=== PATIENT | male | born 1945 | race Caucasian/White ===

== ENCOUNTER 2017-09-18 14:53 | Inpatient (IN) | payer MEDICARE, MEDICAID, OTHER ==
[~2017-09-18] VITALS: Ht 162.6 cm; Wt 125.4 kg
[~2017-09-18 14:53] MED LIST: ASPI-611 PO; AZEL30SP NS; CLOP75TA35 PO; DILT240C9 PO; DOXA1TAB2 PO; FLUT1BLS3 IH; FURO40TA4 PO; GABA-338 PO; GUAI600T45 PO; LANTUS SQ; LISI-600 PO; MULT-342 PO; PRED20TA PO; ROSU20TA PO
[2017-09-18] MEDS ORDERED: ipratropium/albuterol 3ml nebule NEB ONE (15:55)
[2017-09-18] MEDS ORDERED: methylPREDNISolone sod succ 125mg/2ml vial IV ONE ×2 (15:55→23:30)
[2017-09-18 16:30] LABS: ABG BASE EXCESS -4.3 mmol/L (-2.0-3.0); ABG HCO3 22.8 mmol/L (22.0-26.0); ABG OXYGEN SATURATION 88.4 % (95-98); ABG PCO2 (T) 50.5 mmHg (35.0-48.0); ABG PH (T) 7.273 (7.350-7.450); ABG PO2 (T) 54.7 mmHg (83-108); ALLEN'S TEST Positive; FCOHb 0.7 % (0.5-1.5); FLOW 2 L/min; FMetHb 0.2 % (0.3-1.12); FO2Hb 87.6 % (94-100); TOTAL HEMOGLOBIN 12.3 G/dl (14.0-18.0)
[2017-09-18 16:30] LABS: BASOPHILS % (AUTO) 0.1 % (0-1); EOSINOPHILS # (AUTO) 0.1 X10'3 (0-0.9); EOSINOPHILS % (AUTO) 0.9 % (0-6); HEMATOCRIT 35.2 % (42.0-52.0); HEMOGLOBIN 11.7 g/dl (14.0-17.9); LYMPHOCYTES # (AUTO) 1.4 X10'3 (1.1-4.8); LYMPHOCYTES % (AUTO) 12.7 % (21-51); MEAN CORPUSCULAR HEMOGLOBIN 28.3 PG (27.0-31.0); MEAN CORPUSCULAR HGB CONC 33.2 % (33.0-36.5); MEAN CORPUSCULAR VOLUME 85.2 FL (78-98); MEAN PLATELET VOLUME 8.8 FL (7.4-10.4); MONOCYTES # (AUTO) 0.6 X10'3 (0-0.9); NEUTROPHILS # (AUTO) 8.5 X10'3 (1.8-7.7); NEUTROPHILS % (AUTO) 80.3 % (42-75); PLATELET COUNT 234 X10'3 (140-440); RED BLOOD COUNT 4.13 X10'6 (4.70-6.10); RED CELL DISTRIBUTION WIDTH 16.1 % (11.5-14.5); WHITE BLOOD COUNT 10.6 X10'3 (4.5-11.0)
[2017-09-18 16:40] LABS: ALANINE AMINOTRANSFERASE 33 U/L (12-78); ALBUMIN 3.2 G/DL (3.4-5.0); ALBUMIN/GLOBULIN RATIO 0.7 (1.1-1.5); ALKALINE PHOSPHATASE 135 IU/L (46-116); ANION GAP 14 (8-16); ASPARTATE AMINO TRANSFERASE 46 U/L (10-37); BILIRUBIN,TOTAL 0.2 MG/DL (0.1-1.0); BLOOD UREA NITROGEN 48 MG/DL (7-18); BUN/CREATININE RATIO 11.1 (5.4-32.0); CHLORIDE 98 MMOL/L (99-107); CREATININE 4.33 MG/DL (0.60-1.10); GLUCOSE 290 MG/DL (70-104); POTASSIUM 5.3 MMOL/L (3.5-5.1); SODIUM 136 MMOL/L (135-145); TOTAL CARBON DIOXIDE 24.2 MMOL/L (24-32); TOTAL PROTEIN 7.7 G/DL (6.4-8.2); eGFR 14 ML/MIN
[2017-09-18] MEDS ORDERED: levoFLOXACIN-Levaquin 500mg/D5 100 ML IV ONE ×3 (18:03→19:20)
[2017-09-18 19:06] LABS: ABG BASE EXCESS -6.4 mmol/L (-2.0-3.0); ABG HCO3 21.8 mmol/L (22.0-26.0); ABG OXYGEN SATURATION 88.2 % (95-98); ABG PCO2 (T) 55.4 mmHg (35.0-48.0); ABG PH (T) 7.213 (7.350-7.450); ABG PO2 (T) 60.7 mmHg (83-108); ALLEN'S TEST Positive; FCOHb 0.8 % (0.5-1.5); FLOW 3 L/min; FMetHb 0.2 % (0.3-1.12); FO2Hb 87.3 % (94-100)
[2017-09-18] MEDS ORDERED: LORazepam 2 mg/ml vial IV ONE (19:10)
[2017-09-18 22:26] LABS: ABG BASE EXCESS -7.1 mmol/L (-2.0-3.0); ABG HCO3 21.4 mmol/L (22.0-26.0); ABG OXYGEN SATURATION 93.7 % (95-98); ABG PCO2 (T) 56.2 mmHg (35.0-48.0); ABG PH (T) 7.198 (7.350-7.450); ABG PO2 (T) 78.6 mmHg (83-108); ALLEN'S TEST Positive; FCOHb 0.7 % (0.5-1.5); FMetHb 0.2 % (0.3-1.12); FO2Hb 92.9 % (94-100); RESPIRATORY RATE 16 b/min; TOTAL HEMOGLOBIN 12.4 G/dl (14.0-18.0)
[2017-09-18] MEDS ORDERED: magnesium Cl slow-release 64mg tablet PO PRN (23:20)
[2017-09-18] MEDS ORDERED: K, MAG and/or Phos replacement - Verify level? MC PRN (23:20)
[2017-09-18] MEDS ORDERED: magnesium/D5W IVPB 50 ML IV PRN (23:20)
[2017-09-18] MEDS ORDERED: magnesium hydroxide 30ml (MOM) UD suspension PO PRN (23:20)
[2017-09-18] MEDS ORDERED: acetaminophen 325mg tablet PO PRN ×2 (23:20)
[2017-09-18] MEDS ORDERED: potassium Cl 20 mEq SR tablet PO PRN ×2 (23:20)
[2017-09-18] MEDS ORDERED: ondansetron/PF 4mg/2ml inj IV PRN (23:20)
[2017-09-18] MEDS ORDERED: magnesium 4gm in 100ml NS 100 ML IV PRN (23:20)
[2017-09-18] MEDS ORDERED: morphine 4 MG/ML inj SYRINge IV PRN ×2 (23:20)
[2017-09-18] MEDS ORDERED: potassium Cl 40MEQ/250ML bag 250 ML IV PRN ×2 (23:20)
[2017-09-18] MEDS ORDERED: MESSAGE TO PHARMACY PO ONE (23:50)
[2017-09-18] MEDS ORDERED: glucagon, human recombinant 1mg kit SUBCUT PRN (23:50)
[2017-09-18] MEDS ORDERED: dextrose 50%-water 50ml dispensing syringe IV PRN ×2 (23:50)
[2017-09-18] MEDS ORDERED: dextrose ORAL solution 15 GM/59 ML bottle PO PRN ×2 (23:50)
[2017-09-19] VITALS (20 sets, daily range): BP systolic 126–177; BP diastolic 59–98
[2017-09-19 01:01] LABS: PROTHROMBIN TIME 10.3 SECONDS (9.0-12.0)
[2017-09-19] MEDS ORDERED: insulin Lispro (HumaLOG) vial - multi-dose SQ ONE (01:15)
[2017-09-19] MEDS: insulin Lispro (HumaLOG) vial - multi-dose SQ SCH ×4 (01:22→20:49)
[2017-09-19 01:41] LABS: ABG BASE EXCESS -5.8 mmol/L (-2.0-3.0); ABG HCO3 22.4 mmol/L (22.0-26.0); ABG OXYGEN SATURATION 91.8 % (95-98); ABG PCO2 (T) 54.9 mmHg (35.0-48.0); ABG PH (T) 7.227 (7.350-7.450); ABG PO2 (T) 65.7 mmHg (83-108); ALLEN'S TEST Positive; FCOHb 1.1 % (0.5-1.5); FMetHb 0.2 % (0.3-1.12); FO2Hb 90.6 % (94-100); PATIENT TEMPERATURE 36.5; RESPIRATORY RATE 24 b/min; TOTAL HEMOGLOBIN 12.6 G/dl (14.0-18.0)
[2017-09-19] MEDS ORDERED: albuterol 2.5 MG/3 ML nebule NEB PRN (03:10)
[2017-09-19 03:33] LABS: CLARITY,URINE CLEAR (Clear); COLOR,URINE YELLOW (Yellow); GLUCOSE, URINE >=1000 mg/dl (Neg); KETONES,URINE NEGATIVE (Neg); LEUKOCYTE ESTERASE ,URINE NEGATIVE (Neg); NITRITES, URINE NEGATIVE (Neg); OCCULT BLOOD,URINE LARGE (Neg); PROTEIN,URINE 30 mg/dl (Neg); UROBILINOGEN,URINE 0.2 E.U/dL (0.2-1.0)
[2017-09-19 03:34] LABS: UA COLLECTION TYPE NON-SPECIFIED
[2017-09-19 03:47] LABS: COARSE GRANULAR CAST 0-3 /LPF (NEGATIVE); FINE GRANULAR CAST 0-3 /LPF (NEGATIVE)
[2017-09-19 04:02] LABS: BACTERIA,URINE FEW /HPF (Neg); RBC,URINE 0-2 /HPF (0-2); SQUAMOUS EPITHELIAL CELL,UR FEW /LPF (FEW); WBC,URINE 0-4 /HPF (0-4)
[2017-09-19 05:34] LABS: BASOPHILS % (AUTO) 0 % (0-1); EOSINOPHILS # (AUTO) 0.1 X10'3 (0-0.9); EOSINOPHILS % (AUTO) 0.7 % (0-6); HEMATOCRIT 34.3 % (42.0-52.0); HEMOGLOBIN 11.4 g/dl (14.0-17.9); LYMPHOCYTES # (AUTO) 0.5 X10'3 (1.1-4.8); MEAN CORPUSCULAR HEMOGLOBIN 27.8 PG (27.0-31.0); MEAN CORPUSCULAR HGB CONC 33.1 % (33.0-36.5); MONOCYTES # (AUTO) 0.1 X10'3 (0-0.9); MONOCYTES % (AUTO) 0.5 % (2-12); NEUTROPHILS # (AUTO) 10.3 X10'3 (1.8-7.7); NEUTROPHILS % (AUTO) 93.8 % (42-75); PLATELET COUNT 217 X10'3 (140-440); RED BLOOD COUNT 4.09 X10'6 (4.70-6.10); RED CELL DISTRIBUTION WIDTH 16.2 % (11.5-14.5); WHITE BLOOD COUNT 10.9 X10'3 (4.5-11.0)
[2017-09-19] MEDS ORDERED: LORazepam 2 mg/ml vial ONE (05:47)
[2017-09-19 05:56] LABS: ALANINE AMINOTRANSFERASE 36 U/L (12-78); ALBUMIN 2.9 G/DL (3.4-5.0); ALBUMIN/GLOBULIN RATIO 0.7 (1.1-1.5); ALKALINE PHOSPHATASE 132 IU/L (46-116); ANION GAP 10 (8-16); ASPARTATE AMINO TRANSFERASE 53 U/L (10-37); BILIRUBIN,TOTAL 0.2 MG/DL (0.1-1.0); BLOOD UREA NITROGEN 54 MG/DL (7-18); BUN/CREATININE RATIO 15.2 (5.4-32.0); CALCIUM 9.3 MG/DL (8.5-10.1); CHLORIDE 100 MMOL/L (99-107); CREATININE 3.55 MG/DL (0.60-1.10); GLUCOSE 347 MG/DL (70-104); POTASSIUM 5.1 MMOL/L (3.5-5.1); SODIUM 135 MMOL/L (135-145); TOTAL CARBON DIOXIDE 24.9 MMOL/L (24-32); TOTAL PROTEIN 7.3 G/DL (6.4-8.2); eGFR 17 ML/MIN
[2017-09-19 06:04] LABS: MAGNESIUM 2.7 MG/DL (1.5-2.4); PHOSPHORUS 6.1 MG/DL (2.3-4.5)
[2017-09-19 06:33] LABS: HEMOGLOBIN A1C > 14.0 % (4.5-6.2)
[2017-09-19] MEDS: levoFLOXACIN-Levaquin 250mg/D5 50 ML IV SCH (08:10)
[2017-09-19] MEDS: insulin glargine (Lantus) pen - multi-dose SQ SCH ×2 (09:09→19:33)
[2017-09-19] MEDS: albuterol 2.5 MG/3 ML nebule NEB SCH ×3 (11:00→19:31)
[2017-09-19 11:05] LABS: ABG BASE EXCESS -4.7 mmol/L (-2.0-3.0); ABG HCO3 21.2 mmol/L (22.0-26.0); ABG OXYGEN SATURATION 89.4 % (95-98); ABG PO2 (T) 59.2 mmHg (83-108); ALLEN'S TEST Positive; FCOHb 0.2 % (0.5-1.5); FLOW 2 L/min; FMetHb 0.3 % (0.3-1.12); TOTAL HEMOGLOBIN 11.9 G/dl (14.0-18.0)
[2017-09-19] MEDS ORDERED: gabapentin 300mg capsule PO SCH (13:00)
[2017-09-19] MEDS ORDERED: INSU100I25 SQ (14:06)
[2017-09-19] MEDS ORDERED: METO50TA16 PO (14:06)
[2017-09-19] MEDS ORDERED: AMLO10TA PO (14:06)
[2017-09-19] MEDS ORDERED: ROSU40TA21 PO (14:06)
[2017-09-19] MEDS: predniSONE 20 mg tablet PO SCH (15:45)
[2017-09-19] MEDS: budesonide 0.5mg/2ml UD nebule IH SCH (19:31)
[2017-09-19] MEDS: lisinopril 20mg tablet PO SCH (19:33)
[2017-09-19] MEDS: guaiFENesin ER 600mg tablet PO SCH (19:34)
[2017-09-19] MEDS: lactobacillus rhamnosus 10,000 MMU CELLS/CAPSULE PO SCH (19:34)
[2017-09-19] MEDS: azelastine Nasal Spray bottle NS SCH (19:34)
[2017-09-19] MEDS: diltiazem CD 120mg capsule (once-daily) PO SCH (20:44)
[2017-09-19] MEDS ORDERED: insulin glargine (Lantus) pen - multi-dose SQ SCH (21:00)
[2017-09-19 22:13] LABS: GLUCOSE, URINE >=1000 mg/dl (Neg); KETONES,URINE NEGATIVE (Neg); LEUKOCYTE ESTERASE ,URINE NEGATIVE (Neg); NITRITES, URINE NEGATIVE (Neg); OCCULT BLOOD,URINE LARGE (Neg); PH,URINE 5.5 (4.8-8.0); PROTEIN,URINE 100 mg/dl (Neg); UROBILINOGEN,URINE 0.2 E.U/dL (0.2-1.0)
[2017-09-19 22:19] LABS: COLOR,URINE AMBER (Yellow); UA COLLECTION TYPE FOLEY CATH
[2017-09-19 22:20] LABS: CLARITY,URINE Slightly Cloudy (Clear)
[2017-09-19 22:21] LABS: TOTAL PROTEIN,URINE RANDOM 108.8 MG/DL
[2017-09-19 22:22] LABS: MUCUS STRANDS NONE SEEN /LPF (Neg); RBC,URINE 50-100 /HPF (0-2); SQUAMOUS EPITHELIAL CELL,UR FEW /LPF (FEW); WBC,URINE 0-4 /HPF (0-4)
[2017-09-19 22:25] LABS: BACTERIA,URINE NONE SEEN /HPF (Neg); TRANSITIONAL EPI CELLS,URINE FEW /HPF; URIC ACID CRYSTALS 1+ /HPF (NEGATIVE)
[2017-09-19] MEDS ORDERED: haloperidol lactate 5mg/ml inj IM PRN (22:35)
[2017-09-19 22:57] LABS: UA EOSINOPHILS NO EOS /HPF
[2017-09-19] MEDS: LORazepam 2 mg/ml vial IV PRN (23:24)
[2017-09-20] VITALS (20 sets, daily range): BP systolic 123–167; BP diastolic 54–79
[2017-09-20 05:52] LABS: BASOPHILS % (AUTO) 0.2 % (0-1); EOSINOPHILS % (AUTO) 0 % (0-6); LYMPHOCYTES # (AUTO) 0.7 X10'3 (1.1-4.8); LYMPHOCYTES % (AUTO) 4.5 % (21-51); MEAN CORPUSCULAR HGB CONC 33.3 % (33.0-36.5); MEAN PLATELET VOLUME 8.9 FL (7.4-10.4); MONOCYTES # (AUTO) 0.3 X10'3 (0-0.9); MONOCYTES % (AUTO) 2.2 % (2-12); NEUTROPHILS # (AUTO) 13.5 X10'3 (1.8-7.7); NEUTROPHILS % (AUTO) 93.1 % (42-75); PLATELET COUNT 206 X10'3 (140-440); RED BLOOD COUNT 3.92 X10'6 (4.70-6.10); RED CELL DISTRIBUTION WIDTH 16.1 % (11.5-14.5); WHITE BLOOD COUNT 14.6 X10'3 (4.5-11.0)
[2017-09-20 06:20] LABS: ALANINE AMINOTRANSFERASE 39 U/L (12-78); ALBUMIN 2.9 G/DL (3.4-5.0); ALBUMIN/GLOBULIN RATIO 0.7 (1.1-1.5); ALKALINE PHOSPHATASE 118 IU/L (46-116); ANION GAP 9 (8-16); ASPARTATE AMINO TRANSFERASE 121 U/L (10-37); BILIRUBIN,TOTAL 0.2 MG/DL (0.1-1.0); BLOOD UREA NITROGEN 59 MG/DL (7-18); BUN/CREATININE RATIO 20.6 (5.4-32.0); CALCIUM 9.2 MG/DL (8.5-10.1); CHLORIDE 101 MMOL/L (99-107); CREATININE 2.86 MG/DL (0.60-1.10); GLUCOSE 369 MG/DL (70-104); MAGNESIUM 2.5 MG/DL (1.5-2.4); PHOSPHORUS 4.5 MG/DL (2.3-4.5); SODIUM 135 MMOL/L (135-145); TOTAL CARBON DIOXIDE 24.7 MMOL/L (24-32); TOTAL PROTEIN 7.1 G/DL (6.4-8.2); eGFR 22 ML/MIN
[2017-09-20] MEDS: albuterol 2.5 MG/3 ML nebule NEB SCH ×4 (07:23→22:39)
[2017-09-20] MEDS: budesonide 0.5mg/2ml UD nebule IH SCH ×2 (07:23→22:40)
[2017-09-20] MEDS ORDERED: non-formulary drug (Fluticasone/Vilanterol (Breo Ellipta 200-25 Mcg INH) 1 PUFF) IH SCH (08:00)
[2017-09-20] MEDS: lactobacillus rhamnosus 10,000 MMU CELLS/CAPSULE PO SCH ×2 (08:15→19:47)
[2017-09-20] MEDS: doxazosin mesylate 2mg tablet PO SCH (08:15)
[2017-09-20] MEDS: gabapentin 100mg capsule PO SCH (08:15)
[2017-09-20] MEDS: atorvastatin 20mg tablet PO SCH (08:15)
[2017-09-20] MEDS: levoFLOXACIN-Levaquin 250mg/D5 50 ML IV SCH (08:15)
[2017-09-20] MEDS: guaiFENesin ER 600mg tablet PO SCH ×2 (08:16→19:47)
[2017-09-20] MEDS: furosemide 40mg tablet PO SCH (08:16)
[2017-09-20] MEDS: clopidogrel 75mg tablet PO SCH (08:16)
[2017-09-20] MEDS: aspirin 81mg tab.chew PO SCH (08:16)
[2017-09-20] MEDS: lisinopril 20mg tablet PO SCH ×2 (08:16→19:47)
[2017-09-20] MEDS: multivitamins, therapeutics tablet PO SCH (08:16)
[2017-09-20] MEDS: azelastine Nasal Spray bottle NS SCH ×2 (08:17→21:59)
[2017-09-20] MEDS: insulin Lispro (HumaLOG) vial - multi-dose SQ SCH ×3 (09:30→20:03)
[2017-09-20] MEDS: insulin glargine (Lantus) pen - multi-dose SQ SCH ×2 (09:32→21:52)
[2017-09-20] MEDS: predniSONE 20 mg tablet PO SCH (15:07)
[2017-09-20] MEDS: diltiazem CD 120mg capsule (once-daily) PO SCH (21:33)
[2017-09-21 05:52] LABS: BASOPHILS % (AUTO) 0.3 % (0-1); EOSINOPHILS % (AUTO) 0 % (0-6); HEMATOCRIT 33.7 % (42.0-52.0); HEMOGLOBIN 10.7 g/dl (14.0-17.9); LYMPHOCYTES # (AUTO) 0.5 X10'3 (1.1-4.8); LYMPHOCYTES % (AUTO) 4.4 % (21-51); MEAN CORPUSCULAR HEMOGLOBIN 27.1 PG (27.0-31.0); MEAN CORPUSCULAR HGB CONC 31.8 % (33.0-36.5); MEAN CORPUSCULAR VOLUME 85.3 FL (78-98); MEAN PLATELET VOLUME 9.2 FL (7.4-10.4); MONOCYTES # (AUTO) 0.3 X10'3 (0-0.9); MONOCYTES % (AUTO) 2.8 % (2-12); NEUTROPHILS # (AUTO) 11.7 X10'3 (1.8-7.7); NEUTROPHILS % (AUTO) 92.5 % (42-75); PLATELET COUNT 210 X10'3 (140-440); RED BLOOD COUNT 3.95 X10'6 (4.70-6.10); RED CELL DISTRIBUTION WIDTH 15.1 % (11.5-14.5); WHITE BLOOD COUNT 12.5 X10'3 (4.5-11.0)
[2017-09-21 06:21] LABS: ALANINE AMINOTRANSFERASE 40 U/L (12-78); ALBUMIN 2.7 G/DL (3.4-5.0); ALBUMIN/GLOBULIN RATIO 0.6 (1.1-1.5); ALKALINE PHOSPHATASE 113 IU/L (46-116); ANION GAP 10 (8-16); ASPARTATE AMINO TRANSFERASE 85 U/L (10-37); BILIRUBIN,TOTAL 0.3 MG/DL (0.1-1.0); BLOOD UREA NITROGEN 62 MG/DL (7-18); BUN/CREATININE RATIO 24.6 (5.4-32.0); CALCIUM 8.8 MG/DL (8.5-10.1); CHLORIDE 101 MMOL/L (99-107); CREATININE 2.52 MG/DL (0.60-1.10); GLUCOSE 270 MG/DL (70-104); MAGNESIUM 2.3 MG/DL (1.5-2.4); PHOSPHORUS 4.2 MG/DL (2.3-4.5); POTASSIUM 5.2 MMOL/L (3.5-5.1); SODIUM 136 MMOL/L (135-145); TOTAL CARBON DIOXIDE 25.3 MMOL/L (24-32); TOTAL PROTEIN 6.9 G/DL (6.4-8.2); eGFR 25 ML/MIN
[2017-09-21] MEDS: gabapentin 100mg capsule PO SCH (07:31)
[2017-09-21] MEDS: atorvastatin 20mg tablet PO SCH (07:31)
[2017-09-21] MEDS: lisinopril 20mg tablet PO SCH ×2 (07:32→21:58)
[2017-09-21] MEDS: furosemide 40mg tablet PO SCH (07:32)
[2017-09-21] MEDS: guaiFENesin ER 600mg tablet PO SCH ×2 (07:32→21:58)
[2017-09-21] MEDS: clopidogrel 75mg tablet PO SCH (07:32)
[2017-09-21] MEDS: levoFLOXACIN-Levaquin 250mg/D5 50 ML IV SCH (07:32)
[2017-09-21] MEDS: lactobacillus rhamnosus 10,000 MMU CELLS/CAPSULE PO SCH ×2 (07:32→21:58)
[2017-09-21] MEDS: doxazosin mesylate 2mg tablet PO SCH (07:32)
[2017-09-21] MEDS: aspirin 81mg tab.chew PO SCH (07:38)
[2017-09-21] MEDS: azelastine Nasal Spray bottle NS SCH ×2 (07:42→21:58)
[2017-09-21] MEDS: insulin glargine (Lantus) pen - multi-dose SQ SCH ×2 (07:47→22:07)
[2017-09-21] MEDS: multivitamins, therapeutics tablet PO SCH (07:47)
[2017-09-21 08:00] VITALS: BP 176/74
[2017-09-21] MEDS: budesonide 0.5mg/2ml UD nebule IH SCH ×2 (08:48→20:29)
[2017-09-21] MEDS: albuterol 2.5 MG/3 ML nebule NEB SCH ×4 (08:49→20:29)
[2017-09-21] MEDS: insulin Lispro (HumaLOG) vial - multi-dose SQ SCH ×3 (09:50→19:06)
[2017-09-21 12:00] VITALS: BP 152/65
[2017-09-21] MEDS: predniSONE 20 mg tablet PO SCH (15:05)
[2017-09-21 19:30] VITALS: BP 102/55
[2017-09-21 21:45] VITALS: BP 120/63
[2017-09-21] MEDS: diltiazem CD 120mg capsule (once-daily) PO SCH (21:59)
[2017-09-21] MEDS: LORazepam 2 mg/ml vial IV PRN (22:18)
[2017-09-21 23:00] VITALS: BP 133/54
[2017-09-22 03:00] VITALS: BP 135/54
[2017-09-22] MEDS: LORazepam 2 mg/ml vial IV PRN (04:20)
[2017-09-22 04:41] LABS: BASOPHILS % (AUTO) 0.1 % (0-1); EOSINOPHILS # (AUTO) 0.1 X10'3 (0-0.9); EOSINOPHILS % (AUTO) 0.9 % (0-6); HEMATOCRIT 35.1 % (42.0-52.0); HEMOGLOBIN 11.7 g/dl (14.0-17.9); LYMPHOCYTES # (AUTO) 0.9 X10'3 (1.1-4.8); LYMPHOCYTES % (AUTO) 8.1 % (21-51); MEAN CORPUSCULAR HEMOGLOBIN 28.1 PG (27.0-31.0); MEAN CORPUSCULAR HGB CONC 33.3 % (33.0-36.5); MEAN CORPUSCULAR VOLUME 84.4 FL (78-98); MEAN PLATELET VOLUME 8.9 FL (7.4-10.4); MONOCYTES # (AUTO) 0.7 X10'3 (0-0.9); MONOCYTES % (AUTO) 6.3 % (2-12); NEUTROPHILS % (AUTO) 84.6 % (42-75); PLATELET COUNT 210 X10'3 (140-440); RED BLOOD COUNT 4.16 X10'6 (4.70-6.10); RED CELL DISTRIBUTION WIDTH 16.5 % (11.5-14.5); WHITE BLOOD COUNT 10.6 X10'3 (4.5-11.0)
[2017-09-22 04:57] LABS: ALANINE AMINOTRANSFERASE 38 U/L (12-78); ALBUMIN 2.7 G/DL (3.4-5.0); ALBUMIN/GLOBULIN RATIO 0.7 (1.1-1.5); ALKALINE PHOSPHATASE 107 IU/L (46-116); ANION GAP 9 (8-16); ASPARTATE AMINO TRANSFERASE 63 U/L (10-37); BILIRUBIN,TOTAL 0.3 MG/DL (0.1-1.0); BLOOD UREA NITROGEN 59 MG/DL (7-18); BUN/CREATININE RATIO 27.3 (5.4-32.0); CALCIUM 8.8 MG/DL (8.5-10.1); CHLORIDE 102 MMOL/L (99-107); CREATININE 2.16 MG/DL (0.60-1.10); GLUCOSE 247 MG/DL (70-104); MAGNESIUM 2.1 MG/DL (1.5-2.4); PHOSPHORUS 4.4 MG/DL (2.3-4.5); POTASSIUM 4.5 MMOL/L (3.5-5.1); SODIUM 138 MMOL/L (135-145); TOTAL CARBON DIOXIDE 27.3 MMOL/L (24-32); TOTAL PROTEIN 6.8 G/DL (6.4-8.2); eGFR 30 ML/MIN
[2017-09-22 07:00] VITALS: BP 164/71
[2017-09-22] MEDS: albuterol 2.5 MG/3 ML nebule NEB SCH ×2 (07:52→12:04)
[2017-09-22] MEDS: budesonide 0.5mg/2ml UD nebule IH SCH (07:52)
[2017-09-22] MEDS: lisinopril 20mg tablet PO SCH (08:06)
[2017-09-22] MEDS: atorvastatin 20mg tablet PO SCH (08:06)
[2017-09-22] MEDS: multivitamins, therapeutics tablet PO SCH (08:06)
[2017-09-22] MEDS: guaiFENesin ER 600mg tablet PO SCH (08:06)
[2017-09-22] MEDS: lactobacillus rhamnosus 10,000 MMU CELLS/CAPSULE PO SCH (08:06)
[2017-09-22] MEDS: clopidogrel 75mg tablet PO SCH (08:06)
[2017-09-22] MEDS: doxazosin mesylate 2mg tablet PO SCH (08:06)
[2017-09-22] MEDS: furosemide 40mg tablet PO SCH (08:06)
[2017-09-22] MEDS: levoFLOXACIN-Levaquin 250mg/D5 50 ML IV SCH (08:06)
[2017-09-22] MEDS: gabapentin 100mg capsule PO SCH (08:06)
[2017-09-22] MEDS: aspirin 81mg tab.chew PO SCH (08:06)
[2017-09-22] MEDS: azelastine Nasal Spray bottle NS SCH (08:08)
[2017-09-22] MEDS: insulin glargine (Lantus) pen - multi-dose SQ SCH (08:19)
[2017-09-22] MEDS: insulin Lispro (HumaLOG) vial - multi-dose SQ SCH ×2 (08:20→12:59)
[2017-09-22] MEDS ORDERED: PRED20TA PO (10:46)
[2017-09-22] MEDS ORDERED: CARCD120C PO (10:46)
[2017-09-22] MEDS ORDERED: GABA100C PO (10:47)
[2017-09-22] MEDS ORDERED: LEVO500T2 PO (10:49)
[2017-09-22 11:00] VITALS: BP 155/62
[2017-09-22] MEDS ORDERED: predniSONE 20 mg tablet PO SCH ×2 (15:00)
== END 2017-09-22 14:36 | disposition home health service (06) | DRG 682 ==
LOC: ER 14:53 → ED HOLD 23:16 → CICU 2S 09-19 01:12 → PCU 3S 09-20 18:12 → UNDODISIN 09-22 13:25
PROVIDERS: ADMIT Internal Medicine Critical Care Medicine; ATTEND Internal Medicine Critical Care Medicine
PROC: 5A09357 Assistance with Respiratory Ventilation, Less than 24 Consecutive Hours, Continuous Positive Airway Pressure (ICD-10-PCS; principal; 2017-09-18)
DX: N17.9 Acute kidney failure, unspecified (principal); J18.9 Pneumonia, unspecified organism; G93.41 Metabolic encephalopathy; J96.21 Acute and chronic respiratory failure with hypoxia; J44.1 Chronic obstructive pulmonary disease with (acute) exacerbation; J44.0 Chronic obstructive pulmonary disease with (acute) lower respiratory infection; Z68.42 Body mass index [BMI] 45.0-49.9, adult; E87.2 Acidosis; I50.9 Heart failure, unspecified; E11.9 Type 2 diabetes mellitus without complications; F41.9 Anxiety disorder, unspecified; G47.30 Sleep apnea, unspecified; Z99.81 Dependence on supplemental oxygen; Z88.0 Allergy status to penicillin; Z79.82 Long term (current) use of aspirin; Z79.4 Long term (current) use of insulin; Z79.02 Long term (current) use of antithrombotics/antiplatelets; Z82.49 Family history of ischemic heart disease and other diseases of the circulatory system; Z82.5 Family history of asthma and other chronic lower respiratory diseases
CPT/HCPCS: 36415; 36600; 71045; 80053; 81001; 82570; 82803; 82948; 83036; 83605; 83735; 83880; 84100; 84145; 84156; 84300; 84484; 85018; 85025; 85610; 87040; 87070; 87207; 93005; 94640; 94660; 94760; 96365; 96375; 99291; 99292; A6213; C1758; J1815; J1956; J2060; J2270; J2930; J7030; J7512; J7626

== ENCOUNTER 2017-11-11 07:56 | Emergency (ER) | payer MEDICARE, MEDICAID, OTHER ==
[~2017-11-11] VITALS: Ht 177.8 cm; Wt 120.5 kg
[~2017-11-11 07:56] MED LIST changes: +AMLO10TA PO; -AZEL30SP NS; -DILT240C9 PO; -FLUT1BLS3 IH; -GUAI600T45 PO; +INSU100I25 SQ; -LANTUS SQ; +METO50TA16 PO; -ROSU20TA PO; +ROSU40TA21 PO
[2017-11-11 07:57] VITALS: BP 125/59
[2017-11-11] MEDS ORDERED: CLIN300C85 PO (08:27)
== END 2017-11-11 09:41 | disposition home or self-care (01) ==
LOC: ER 07:57
DX: L03.316 Cellulitis of umbilicus (principal); I50.9 Heart failure, unspecified; J44.9 Chronic obstructive pulmonary disease, unspecified; E11.9 Type 2 diabetes mellitus without complications; Z98.890 Other specified postprocedural states; Z87.891 Personal history of nicotine dependence; Z88.0 Allergy status to penicillin; Z79.82 Long term (current) use of aspirin; Z79.4 Long term (current) use of insulin; Z79.899 Other long term (current) drug therapy
CPT/HCPCS: 99283

== ENCOUNTER 2018-02-09 23:16 | Emergency (ER) | payer MEDICARE, OTHER ==
[~2018-02-09] VITALS: Ht 175.3 cm; Wt 118.0 kg
[~2018-02-09 23:16] MED LIST changes: +CLIN300C85 PO
[2018-02-10] MEDS ORDERED: normal saline 1000ML IV soln IVB ONE
[2018-02-10] MEDS ORDERED: methylPREDNISolone sod succ 125mg/2ml vial IV ONE
[2018-02-10] MEDS ORDERED: albuterol 2.5 MG/3 ML nebule CONTNEB PRN
[2018-02-10 00:45] LABS: ABG BASE EXCESS -3.2 mmol/L (-2.0-3.0); ABG HCO3 20.5 mmol/L (22.0-26.0); ABG OXYGEN SATURATION 90.2 % (95-98); ABG PCO2 (T) 33.9 mmHg (35.0-48.0); ABG PH (T) 7.405 (7.350-7.450); ABG PO2 (T) 61.7 mmHg (83-108); ALLEN'S TEST Positive; FCOHb 0.6 % (0.5-1.5); FMetHb 0.1 % (0.3-1.12); FO2Hb 89.6 % (94-100); PATIENT TEMPERATURE 38.3; RESPIRATORY RATE (OBSERVED) 22 b/min; TOTAL HEMOGLOBIN 10.3 G/dl (14.0-18.0)
[2018-02-10] MEDS ORDERED: furosemide 10 MG/1 ML 10ml inj IV ONE (00:50)
[2018-02-10 01:10] LABS: BASOPHILS % (AUTO) 0.3 % (0-1); EOSINOPHILS # (AUTO) 0.2 X10'3 (0-0.9); HEMATOCRIT 39.5 % (42.0-52.0); HEMOGLOBIN 12.8 g/dl (14.0-17.9); LYMPHOCYTES # (AUTO) 0.6 X10'3 (1.1-4.8); LYMPHOCYTES % (AUTO) 5.4 % (21-51); MEAN CORPUSCULAR HEMOGLOBIN 27.2 PG (27.0-31.0); MEAN CORPUSCULAR HGB CONC 32.5 % (33.0-36.5); MEAN CORPUSCULAR VOLUME 83.7 FL (78-98); MEAN PLATELET VOLUME 8.9 FL (7.4-10.4); MONOCYTES # (AUTO) 0.8 X10'3 (0-0.9); NEUTROPHILS # (AUTO) 8.9 X10'3 (1.8-7.7); NEUTROPHILS % (AUTO) 84.3 % (42-75); PLATELET COUNT 286 X10'3 (140-440); RED BLOOD COUNT 4.72 X10'6 (4.70-6.10); RED CELL DISTRIBUTION WIDTH 17.5 % (11.5-14.5); WHITE BLOOD COUNT 10.5 X10'3 (4.5-11.0)
[2018-02-10 01:22] LABS: ALANINE AMINOTRANSFERASE 29 U/L (12-78); ALBUMIN 3.2 G/DL (3.4-5.0); ALBUMIN/GLOBULIN RATIO 0.7 (1.1-1.5); ALKALINE PHOSPHATASE 136 IU/L (46-116); ANION GAP 6 (8-16); ASPARTATE AMINO TRANSFERASE 35 U/L (10-37); BILIRUBIN,TOTAL 0.3 MG/DL (0.1-1.0); BLOOD UREA NITROGEN 26 MG/DL (7-18); BUN/CREATININE RATIO 15.8 (5.4-32.0); CALCIUM 9.4 MG/DL (8.5-10.1); CHLORIDE 101 MMOL/L (99-107); CREATININE 1.65 MG/DL (0.60-1.10); GLUCOSE 312 MG/DL (70-104); SODIUM 137 MMOL/L (135-145); TOTAL CARBON DIOXIDE 29.8 MMOL/L (24-32); TOTAL PROTEIN 7.8 G/DL (6.4-8.2); eGFR 41 ML/MIN
[2018-02-10 01:29] LABS: PARTIAL THROMBOPLASTIN TIME 28 SECONDS (22-32)
[2018-02-10 01:52] VITALS: BP 157/94
== END 2018-02-10 01:53 | disposition home or self-care (01) ==
LOC: ER 23:16
DX: I50.9 Heart failure, unspecified (principal); J44.9 Chronic obstructive pulmonary disease, unspecified; E11.9 Type 2 diabetes mellitus without complications; Z86.73 Personal history of transient ischemic attack (TIA), and cerebral infarction without residual deficits; Z98.890 Other specified postprocedural states; Z87.891 Personal history of nicotine dependence; Z88.0 Allergy status to penicillin; Z79.82 Long term (current) use of aspirin; Z79.899 Other long term (current) drug therapy; Z79.4 Long term (current) use of insulin; Z99.81 Dependence on supplemental oxygen
CPT/HCPCS: 36415; 36600; 71045; 80053; 82803; 83605; 83880; 84484; 85018; 85025; 85610; 85730; 87040; 87502; 87503; 93005; 94644; 94760; 96374; 96375; 99285; J1940; J2930; J7030